=== PATIENT | male | born 1970 | race Caucasian/White ===

== ENCOUNTER 2018-09-13 16:00 | Outpatient (CLI) | payer OTHER | END 2018-09-13 16:01 | disposition home or self-care (01) | LOC: SLEEPLAB 16:00 | PROVIDERS: ATTEND Otolaryngology Otolaryngic Allergy | DX: G47.33 Obstructive sleep apnea (adult) (pediatric) (principal); R06.83 Snoring | CPT/HCPCS: 95806 ==

== ENCOUNTER 2019-06-10 06:58 | Outpatient (CLI) | payer OTHER ==
--- NOTE | 2019-06-10 08:26 | ULT ---
Hepatic sonogram with duplex evaluation HISTORY: Abnormal liver function tests. FINDINGS: Gallbladder has a normal appearance without evidence of stones. Common duct is 0.6 cm. Liver is diffusely echogenic without focal mass or intrahepatic biliary dilatation. No free fluid. The spleen measures up to 14.3 cm without focal abnormality. Good color and spectral Doppler flow within the hepatic and splenic arteries. Portal venous flow is t owards the liver. Hepatic venous flow is towards the IVC. IMPRESSION: Hepatic steatosis. Mild splenomegaly. No other findings of portal venous hypertension.
== END 2019-06-10 06:59 | disposition home or self-care (01) ==
LOC: BICULT 06:58
PROVIDERS: ATTEND Internal Medicine Gastroenterology
DX: R94.5 Abnormal results of liver function studies (principal); K76.0 Fatty (change of) liver, not elsewhere classified; R16.1 Splenomegaly, not elsewhere classified
CPT/HCPCS: 76705

== ENCOUNTER 2023-07-21 15:01 | Outpatient (CLI) | payer BC | END 2023-07-21 15:02 | disposition home or self-care (01) | LOC: BICMRI 15:01 | PROVIDERS: ATTEND Orthopaedic Surgery | DX: M75.22 Bicipital tendinitis, left shoulder (principal) ==

== ENCOUNTER 2023-08-11 07:33 | Outpatient (CLI) | payer BC | END 2023-08-11 07:34 | disposition home or self-care (01) | LOC: BICMRI 07:33 | PROVIDERS: ATTEND Physical Medicine & Rehabilitation | DX: M50.121 Cervical disc disorder at C4-C5 level with radiculopathy (principal); M79.621 Pain in right upper arm; M50.122 Cervical disc disorder at C5-C6 level with radiculopathy; M50.123 Cervical disc disorder at C6-C7 level with radiculopathy | CPT/HCPCS: 72141 ==